=== PATIENT | female | born 2000 | race Caucasian/White ===

== ENCOUNTER 2023-08-29 16:56 | Emergency (ER) | payer MEDICAID ==
[~2023-08-29] VITALS: Ht 170.2 cm; Wt 127.0 kg
[2023-08-29 17:32] VITALS: BP 141/50; RESP 16; TEMP 98.7; O2SAT 100
[2023-08-29 17:35] VITALS: PULSE 109
[2023-08-29 18:41] LABS: BASOPHILS % 0.3 % (0.0-2.0); DIFFERENTIAL COMMENT 0; EOSINOPHILS % 0.7 % (0.0-5.0); HEMATOCRIT. 36.8 % (36.0-48.0); HEMOGLOBIN. 11.5 g/dL (12.0-16.0); LYMPHOCYTES % 20.3 % (20.0-50.0); MEAN CORPUSCULAR HGB CONC 31.2 g/dL (31.0-37.0); MEAN CORPUSCULAR VOLUME 70.4 fL (81.0-99.0); MEAN PLATELET VOLUME 8.4 fl (7.4-10.4); MONOCYTES % 5.4 % (2.0-8.0); NEUTROPHILS % 73.3 % (40.0-76.0); PLATELET 308 x1000/uL (130-400); RED BLOOD CELL COUNT 5.23 mill/uL (4.2-5.4); RED CELL DISTRIBUTION WIDTH 19.9 % (11.6-14.6); WHITE BLOOD COUNT 9.9 x1000/uL (4.5-11.0)
== END 2023-08-29 19:59 | disposition left against medical advice (07) ==
LOC: ER 17:07
DX: N93.9 Abnormal uterine and vaginal bleeding, unspecified (principal); J45.909 Unspecified asthma, uncomplicated; Z53.21 Procedure and treatment not carried out due to patient leaving prior to being seen by health care provider
CPT/HCPCS: 36415; 76856; 85025; 86850; 86900; 99284